=== PATIENT | female | born 1935 | race Caucasian/White ===

== ENCOUNTER 2018-02-15 03:38 | Emergency (ER) | payer MEDICARE, MEDICAID ==
[2018-02-15] MEDS ORDERED: Nitroglycerin 2% OINT* 1 GM PAK ONE (03:47)
[2018-02-15] MEDS ORDERED: Aspirin 81 mg CHEW TAB* 81 MG TAB.CHEW ONE (03:48)
[2018-02-15] MEDS ORDERED: Nitroglycerin 2% OINT* 1 GM PAK TOPICAL ONE (03:54)
[2018-02-15] MEDS ORDERED: Furosemide IV* 10 MG/ML VIAL (40 MG) IV ONE (03:54)
[2018-02-15] MEDS ORDERED: Aspirin TAB* 325 MG PO ONE (03:57)
[2018-02-15] MEDS ORDERED: Ticagrelor* 90 MG TAB PO ONE (04:07)
[2018-02-15 04:08] LABS: ABS Basophils 0 10^3/ul (0-0.2); ABS Eosinophils 0.1 10^3/ul (0-0.6); ABS Lymphocytes 0.8 10^3/ul (1.0-4.8); ABS Monocytes 0.3 10^3/ul (0-0.8); ABS Neutrophils 5.7 10^3/ul (1.5-7.7); ABS Nucleated RBC 0 10^3/ul; Eosinophil % 0.8 % (0-6); Hematocrit 39 % (35-47); Hemoglobin 13.5 g/dl (12.0-16.0); Lymphocyte % 11.6 % (25-47); Mean Corpuscular HGB Conc 35 g/dl (31-36); Mean Corpuscular Hemoglobin 33 pg (27-31); Mean Corpuscular Volume 96 fL (80-97); Mean Platelet Volume 9.6 um3 (7.4-10.4); Nucleated Red Blood Cells % 0; Platelet Count 186 10^3/ul (150-450); Red Cell Distribution Width 14 % (10.5-15); White Blood Count 6.9 10^3/ul (3.5-10.8)
[2018-02-15] MEDS ORDERED: Heparin VIAL(*) 5000 UNITS/ML VIAL (FIVE THOUSAND) IV STA (04:11)
[2018-02-15] MEDS ORDERED: Heparin for STEMI(*) 5,000 UNITS/ML 1 ML VIAL IV ONE (04:11)
[2018-02-15] MEDS ORDERED: Morphine VIAL* 4 MG/ML VIAL (1 ml vial) IV ONE (04:14)
[2018-02-15 04:19] LABS: INR 0.91 (0.77-1.02)
[2018-02-15 04:24] LABS: EGFR Non-African American 109.9 (>60)
[2018-02-15] MEDS ORDERED: Lidocaine 1% INJ* 10 MG/ML 30 ML SDV ONE (04:25)
[2018-02-15] MEDS ORDERED: nitroGLYCERIN DRIP* 25,000 MCG/250 ML BTL ONE (04:25)
[2018-02-15] MEDS ORDERED: Heparin 2 UNITS/ML IVPREMIX* 3,000 ML IV ONE (04:25)
[2018-02-15] MEDS ORDERED: fentaNYL* 50 MCG/ML 2 ML VIAL (100 MCG VIAL) ONE (04:25)
[2018-02-15] MEDS ORDERED: Iohexol 350 (CONTRAST) 200 ML MDV IV ONE (04:26)
[2018-02-15] MEDS ORDERED: Midazolam* 1 MG/ML 10 ML VIAL (10 MG) ONE (04:36)
[2018-02-15] MEDS ORDERED: Heparin(*) 1000 UNIT/ML 10 ML VIAL CATH LAB IV ONE (04:37)
[2018-02-15] MEDS ORDERED: VERAPAMIL 2.5 MG/ML 2 ML VIAL ** 5 mg/2 ml ONE (04:37)
[2018-02-15 04:46] VITALS: BP 114/95
--- NOTE | 2018-02-15 04:48 | ED ---
Dwayne Mcpherson Gabriel, scribed for EsmondErmias MD on 02/15/18 at 0342 . Dizziness - HPI Summary HPI Summary: This patient is a 82 year old F BIBA to [facility] the [facility] for dizziness that began last night at 2100. This morning she was diaphoretic and complaining of dyspnea which is unusual for her per [facility] staff. Patient reports diaphoresis, RHODES, and SOB. Patient denies chest pain. Hx Afib. Per EMS, she was in respiratory distress and hypoxic on their arrival. - History Of Current Complaint Chief Complaint: EDShortnessOfBreath Stated Complaint: SOB Time Seen by Provider: 02/15/18 03:40 Hx Obtained From: Patient Onset/Duration: Suddenly Timing: Constant Severity Initially: Moderate Severity Currently: Moderate Character: Lightheaded, Dizzy Aggravating Factor(s): Nothing Associated Signs And Symptoms: Positive: Other: - diaphoresis, RHODES, and SOB. - Allergies/Home Medications Allergies/Adverse Reactions: Allergies Allergy/AdvReac Type Severity Reaction Status Date / Time ciprofloxacin Allergy Rash Verified 02/15/18 03:41 Sulfa (Sulfonamide Allergy Rash Verified 02/15/18 03:41 Antibiotics) Home Medications: Home Medications Metoprolol Succinate XL TAB* [Toprol XL TAB*] 25 mg PO DAILY 02/15/18 [History Confirmed 02/15/18] PMH/Surg Hx/FS Hx/Imm Hx Endocrine/Hematology History: Denies: Hx Anticoagulant Therapy, Hx Diabetes Cardiovascular History: Reports: Hx Hypercholesterolemia, Hx Hypertension, Other Cardiovascular Problems/Disorders - carotid blockage, HLD Denies: Hx Auto Implanted Cardiovert Defib, Hx Congestive Heart Failure, Hx Pacemaker/ICD Respiratory History: Denies: Hx Chronic Obstructive Pulmonary Disease (COPD) GI History: Reports: Hx Ulcer, Other GI Disorders - CHRONIC CONSTIPATION History: Denies: Hx Renal Disease Musculoskeletal History: Reports: Hx Arthritis, Hx Back Problems, Hx Osteoporosis, Other Musculoskeletal History - SPINAL STENOSIS Sensory History: Reports: Hx Cataracts - BILAT EXT WITH IOL, Hx Contacts or Glasses Denies: Hx Glaucoma, Hx Hearing Aid Opthamlomology History: Reports: Hx Cataracts - BILAT EXT WITH IOL, Hx Contacts or Glasses Denies: Hx Glaucoma Neurological History: Reports: Hx Migraine, Other Neuro Impairments/Disorders - VERTIGO Psychiatric History: Denies: Hx Panic Disorder - Cancer History Hx Chemotherapy: No Hx Radiation Therapy: No - Surgical History Surgery Procedure, Year, and Place: LEFT INGUINAL HERNIA REPAIR 11/2013. UMBILICAL HERNIA REPAIR. [place] [facility] [place] [facility] [place] RIGHT [place]OTAL KNEE- [facility]. 1950 & 1965 RT BREAST BIOPSY (BENIGN)- [facility]. 1963 & 1964 C- SECTION- [facility] 1965 APPENDECTOMY & HYSTERECTOMY- [facility]. [place] [facility] [place] Anesthesia Reactions: No - Social History Alcohol Use: None Substance Use Type: Reports: None Smoking Status (MU): Never Smoked Tobacco Have You Smoked in the Last Year: No Review of Systems Positive: Skin Diaphoresis Negative: Chest Pain Positive: Shortness Of Breath, Other - RHODES Neurological: Other - dizziness All Other Systems Reviewed And Are Negative: Yes Physical Exam - Summary Physical Exam Summary: Appearance: Well-appearing, Well-nourished, in moderate distress Skin: diaphoretic Eyes: sclera anicteric, no conjunctiva pallor, ENT: mucous membranes moist, pharynx appears normal, Neck: Supple, nontender Respiratory: diffuse expiratory wheezes with inspiratory crackles. Increased work with breathing Cardiovascular: Normal S1, S2. No murmurs. Normal distal pulses in tibial and radial bilaterally. Abdomen: Soft, nontender, normal active bowel sounds present Musculoskeletal: Normal, Strength/ROM Intact, no edema Neurological: A&Ox3, awake and alert, mentation is normal, speech is fluent and appropriate Psychiatric: affect is normal, does not appearing anxious or depressed Triage Information Reviewed: Yes Vital Signs On Initial Exam: Initial Vitals Temp Pulse Resp BP Pulse Ox 35.4 C 99 18 148/128 97 02/15/18 03:39 02/15/18 03:39 02/15/18 03:39 02/15/18 03:39 02/15/18 03:39 Vital Signs Reviewed: Yes Diagnostics - Vital Signs Vital Signs Temp Pulse Resp BP Pulse Ox 02/15/18 04:11 85 97/65 98 02/15/18 04:10 92 86/66 98 02/15/18 04:04 82 20 86/66 97 02/15/18 04:00 85 20 98 02/15/18 03:55 107 18 109/80 98 02/15/18 03:44 96 26 147/109 97 02/15/18 03:43 93 29 94 02/15/18 03:39 35.4 C 99 18 148/128 97 - Laboratory Lab Results: Lab Results 02/15/18 02/15/18 02/15/18 Range/Units 03:54 03:54 03:54 WBC 6.9 (3.5-10.8) 10^3/ul RBC 4.10 (4.0-5.4) 10^6/ul Hgb 13.5 (12.0-16.0) g/dl Hct 39 (35-47) % MCV 96 (80-97) fL MCH 33 H (27-31) pg MCHC 35 (31-36) g/dl RDW 14 (10.5-15) % Plt Count 186 (150-450) 10^3/ul MPV 9.6 (7.4-10.4) um3 Neut % (Auto) 82.2 (38-83) % Lymph % (Auto) 11.6 L (25-47) % Hendricks % (Auto) 4.9 (0-7) % Eos % (Auto) 0.8 (0-6) % Baso % (Auto) 0.5 (0-2) % Absolute Neuts (auto) 5.7 (1.5-7.7) 10^3/ul Absolute Lymphs (auto) 0.8 L (1.0-4.8) 10^3/ul Absolute Monos (auto) 0.3 (0-0.8) 10^3/ul Absolute Eos (auto) 0.1 (0-0.6) 10^3/ul Absolute Basos (auto) 0 (0-0.2) 10^3/ul Absolute Nucleated RBC 0 10^3/ul Nucleated RBC % 0 INR (Anticoag Therapy) (0.77-1.02) APTT (26.0-36.3) seconds Sodium 132 L (139-145) mmol/L Potassium Pending Chloride 99 L (101-111) mmol/L Carbon Dioxide 22 (22-32) mmol/L Anion Gap Pending BUN 22 (6-24) mg/dL Creatinine 0.53 (0.51-0.95) mg/dL Est GFR ( Amer) 141.3 (>60) Est GFR (Non-Af Amer) 109.9 (>60) BUN/Creatinine Ratio 41.5 H (8-20) Glucose 244 H (70-100) mg/dL Lactic Acid 2.5 H* (0.5-2.0) mmol/L Calcium 9.3 (8.6-10.3) mg/dL Total Bilirubin 0.60 (0.2-1.0) mg/dL AST Pending ALT 81 H (7-52) U/L Alkaline Phosphatase 93 (34-104) U/L Total Creatine Kinase 114 (10-223) U/L CK-MB (CK-2) 14.7 H (0.6-6.3) ng/mL Myoglobin 59.6 (14.3-65.8) ng/mL Troponin I 0.50 H* (<0.04) ng/mL B-Natriuretic Peptide ( - 100) pg/mL Total Protein 6.4 (6.4-8.9) g/dL Albumin 3.9 (3.2-5.2) g/dL Globulin 2.5 (2-4) g/dL Albumin/Globulin Ratio 1.6 (1-3) LDL Cholesterol Direct 73 mg/dL Blood Type Antibody Screen 02/15/18 02/15/18 02/15/18 Range/Units 03:54 03:54 03:54 WBC (3.5-10.8) 10^3/ul RBC (4.0-5.4) 10^6/ul Hgb (12.0-16.0) g/dl Hct (35-47) % MCV (80-97) fL MCH (27-31) pg MCHC (31-36) g/dl RDW (10.5-15) % Plt Count (150-450) 10^3/ul MPV (7.4-10.4) um3 Neut % (Auto) (38-83) % Lymph % (Auto) (25-47) % Hendricks % (Auto) (0-7) % Eos % (Auto) (0-6) % Baso % (Auto) (0-2) % Absolute Neuts (auto) (1.5-7.7) 10^3/ul Absolute Lymphs (auto) (1.0-4.8) 10^3/ul Absolute Monos (auto) (0-0.8) 10^3/ul Absolute Eos (auto) (0-0.6) 10^3/ul Absolute Basos (auto) (0-0.2) 10^3/ul Absolute Nucleated RBC 10^3/ul Nucleated RBC % INR (Anticoag Therapy) 0.91 (0.77-1.02) APTT 26.2 (26.0-36.3) seconds Sodium (139-145) mmol/L Potassium Chloride (101-111) mmol/L Carbon Dioxide (22-32) mmol/L Anion Gap BUN (6-24) mg/dL Creatinine (0.51-0.95) mg/dL Est GFR ( Amer) (>60) Est GFR (Non-Af Amer) (>60) BUN/Creatinine Ratio (8-20) Glucose (70-100) mg/dL Lactic Acid (0.5-2.0) mmol/L Calcium (8.6-10.3) mg/dL Total Bilirubin (0.2-1.0) mg/dL AST ALT (7-52) U/L Alkaline Phosphatase (34-104) U/L Total Creatine Kinase (10-223) U/L CK-MB (CK-2) (0.6-6.3) ng/mL Myoglobin (14.3-65.8) ng/mL Troponin I (<0.04) ng/mL B-Natriuretic Peptide 1130 H ( - 100) pg/mL Total Protein (6.4-8.9) g/dL Albumin (3.2-5.2) g/dL Globulin (2-4) g/dL Albumin/Globulin Ratio (1-3) LDL Cholesterol Direct mg/dL Blood Type A Positive Antibody Screen Pending Result Diagrams: 02/15/18 03:54 02/15/18 03:54 Lab Statement: Any lab studies that have been ordered have been reviewed, and results considered in the medical decision making process. - Radiology No standard instances Xray Interpretation: Positive (See Comments) - pulmonary edema is present Radiology Interpretation Completed By: ED Physician - Pulmonary edema is present - EKG No standard instances Cardiac Rate: NL EKG Rhythm: 1st Degree HB Ectopy: PVCs - occasional EKG Comparison: - Baseline tracing shows nl ST segments Re-Evaluation - Re-Evaluation First Eval Re-Evaluation Time: 04:02 Change: Unchanged Comment: I informed the patient that she may be having a heart attack and discussed her DNR status in relation to treatment. She states she would like to be treated even if that includes being intubated and other forms of resuscitation . Dizzy Course/Dx - Diagnoses Provider Diagnoses: Acute ST elevation myocardial infarction (STEMI) due to occlusion of right coronary artery, Acute pulmonary edema During the Visit The Following Alert/Code Occurred: STEMI - called at 0341 and 0403 - Provider Notifications Discussed Care Of Patient With: Fercho Garcia Time Discussed With Above Provider: 03:48 Instructed by Provider To: Other - We discussed patient care with Dr. Garcia and he states that since the pt is a DNR she should not be brought to the dental laboratory technician. - Critical Care Time Critical Care Time: 30-74 min - Pt with acute pulmonary edema and respiratory distress requiring bipap in the setting of STEMI. Discharge - Sign-Out/Discharge Documenting (check all that apply): Discharge/Admit/Transfer - Discharge Plan Condition: Critical Disposition: ADMITTED TO [facility] Referrals: Jeff Rodriguez MD [Primary Care Provider] - - Billing Disposition and Condition Condition: CR[place] [place] Consult: We discussed patient care with Dr. Garcia and they recommended giving the patient brilinta and heparin. The documentation as recorded by the Dwayne myrick Gabriel accurately reflects the service I personally performed and the decisions made by me, Ermias Hardy MD.
[2018-02-15] MEDS ORDERED: Heparin DRIP 25,000 UNITS(*) 25,000 UNITS/500 ML BAG ONE (05:05)
--- NOTE | 2018-02-15 08:00 | RAD ---
HISTORY: Shortness of breath COMPARISONS: June 25, 2015 VIEWS: 1: frontal portable view of the chest at 3:48 AM. The patient is obliqued to the left. FINDINGS: LINES AND TUBES: None. CARDIOMEDIASTINAL SILHOUETTE: The cardiac silhouette is enlarged. The cardiomediastinal silhouette is otherwise normal for portable technique. PLEURA: The costophrenic angles are sharp. No pleural abnormalities are noted. LUNG PARENCHYMA: There is diffuse pattern of reticular opacification. There is more focal alveolar desiccation of the right midlung field. ABDOMEN: The upper abdomen is clear. There is no subphrenic gas. BONES AND SOFT TISSUES: No bone or soft tissue abnormalities are noted. IMPRESSION: 1. CARDIOMEGALY. 2. DIFFUSE INTERSTITIAL OPACIFICATION SUGGESTIVE OF PULMONARY INTERSTITIAL EDEMA IN THE CORRECT CLINICAL SETTING. 3. THERE IS MORE FOCAL AIRSPACE DISEASE OF THE RIGHT MIDLUNG
--- NOTE | 2018-02-15 08:55 | HP ---
CC: Jeff Rodriguez MD * ADMISSION HISTORY AND PHYSICAL/TRANSFER NOTE: DATE OF ADMISSION: 02/15/18 CHIEF COMPLAINT: Shortness of breath and dizziness with mild diaphoresis with EKG raising a question of acute ST-segment elevation inferior wall myocardial infarction. HISTORY OF PRESENT ILLNESS: The patient is an 82-year-old female with no prior history of coronary artery disease. She has a history of hypertension, hyperlipidemia, who resides at a nursing facility and developed shortness of breath and diaphoresis and some dizziness starting earlier in the day becoming more significant toward the middle of the night. The ambulance was summoned and she was found to have minimal ST-segment elevation was in lead aVF and more prominent lead 3 and the patient was brought to [facility] where the emergency room physician called a STEMI alert. Of note, discussing with them over the phone, it was noted that she had a DNR status in place at the long term. The emergency room doctor, Dr. aHrdy then went back into the room and the patient wished to reverse the DNR status and wanted everything done including being intubated, including being on life support system and having CPR performed. On my arrival, she had the shortness of breath, but at no time had she complained chest discomfort. The risks and benefits were reviewed with the patient and her daughter both understood and the patient wished to proceed. PAST MEDICAL HISTORY: Hypertension, hyperlipidemia, osteoarthritis, chronic low back pain due to spinal stenosis, chronic right footdrop, chronic bowel and bladder incontinence. She also has carotid artery disease with a greater than 70% stenosis of a right internal carotid artery. REVIEW OF SYSTEMS: Pertinent proceeding to the cardiovascular laboratory, the patient denied any known history of stroke, any history of hematemesis, hematochezia, hematuria, or any dye allergy. She denied any known history of renal insufficiency. PHYSICAL EXAMINATION VITAL SIGNS: In the emergency room, blood pressure 114/95, pulse 85, respirations 20, O2 saturation on BiPAP was 97%. NECK: Supple. I could not assess for increased JVP accurately. I could not hear carotid sounds due to coarse breath sounds. CHEST: Chest had coarse breath sounds bilaterally. HEART: Heart had frequent PACs with a soft systolic murmur. ABDOMEN: Obese, soft, nontender. EXTREMITIES: Without pitting edema. Peripheral pulses were diminished. Femoral pulses present bilaterally. MUSCULOSKELETAL: She moved all extremities. NEUROLOGIC: The patient alert, oriented. PSYCHOLOGICAL: Patient with appropriate affect. DIAGNOSTIC STUDIES/LAB DATA: Sodium 132, potassium was hemolyzed, chloride 99 , bicarb 22, BUN and creatinine were 22 and 0.5, hemoglobin and hematocrit was 13.5 and 39, white count was 6900, platelet count was 186,000, glucose was 244, lactic acid was 2.5, SGOT was not available due to hemolysis, SGPT was 81, BNP was 1130, total CPK 114, MB 14.7, troponin 0.5. Of note, patient had been given furosemide 20 mg IV in the emergency room. Initially, was given a Nitropaste, but this was wiped off due to hypotension that transiently developed. Cardiovascular laboratory results and there appeared to be what look like a chronic total occlusion right coronary artery, severe calcification was seen throughout the proximal and mid right coronary artery. There were left to right collaterals noted. The true caliber of the right coronary artery could not be identified. The left coronary artery had a 95% distal left main stenosis. There was moderate coronary artery disease. In the proximal LAD, there was calcification seen in the left main and proximal portion of the LAD and the circumflex. The branches of the circumflex and the LAD diagonal branches had no critical disease seen within them. The caliber of the diagonal branches was borderline bypassable. LVEF was estimated at 25% with inferior akinesis, significant hypokinesis elsewhere and left ventricular end diastolic pressure was 30 to 32 mmHg. OVERALL ASSESSMENT: Ciarra presents now with suggestive findings of possible ST- segment elevation inferior OR with a totally occluded right, which appears to be chronic as there appears to be filling virtually all the way back to the proximal right coronary artery. The biggest obvious problem is the critical 95 % left main. 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 I did have a discussion with the patient at length as to whether she really wanted to proceed with all of this and is into the point of risk of stroke during surgery as well as all other complications that could come up during surgery. She understood all of this, but clearly wanted to proceed with transfer, so that she could get a surgical opinion regarding the case. It was the family's wish that she got sent to the [place], they specifically did not want [facility], the closest facility, and understood the issue that it would cost more to be transferred to [place]. I personally spoke with Dr. Maddy Sky, who graciously accepted the patient to the Cardiothoracic Surgery Intensive Care Unit. At the time of discharge, the patient was on nasal cannula O2 saturating at 95% to 97% and blood pressure was in the 140/80 range. I personally also gave a report to the emergency medical service personnel as well. Further management will be made under the guidance of [facility]'s Cardiothoracic Surgery Department with Dr. Sky accepting the patient. [id number]/[facility] #: [id number] MTDSusan
--- NOTE | 2018-02-15 10:58 | CATH ---
CC: Dr. Jeff Rodriguez; Dr. Maddy Sky, Department of Cardiothoracic Surgery, [place], [place] * CARDIAC CATHETERIZATION REPORT: DATE OF PROCEDURE: 02/15/18 - EMERGENCY DEPT INDICATION FOR THE PROCEDURE: The patient presents with EKG raising question of a ST segment elevation inferior wall myocardial infarction with shortness of breath presentation. No chest discomfort. The procedure was coronary arteriorrhaphy, left heart catheterization, left ventriculography. The patient was interviewed and examined in the emergency room where the risks and benefits were explained. Of note, the patient reversed a DNR order to proceed with cardiac catheterization, accepted all of the implications of this. The family was present as well and understood this. In the emergency room, the patient had received 4000 units of heparin, 180 mg of Brilinta and the patient had already received full dose aspirin therapy. The patient was brought to the cardiovascular laboratory where formal timeout was performed. APPROACH UTILIZED: Left femoral artery. EQUIPMENT UTILIZED: 1. Femoral sheath - 23 cm long, 6-Serbian right hip sheath. 2. Diagnostic catheters - An FL 3.5 curve left coronary catheter and a JR4, AL1 , AR2 for right coronary artery. 3. Catheter for left heart catheterization - A 5-Serbian angled pigtail catheter. 4. Guidewire utilized for catheter exchanges was an exchange length Wholey wire which had to be utilized given some degree of difficulty advancing the wire throughout the distal aortic area (a long sheath was utilized for this purpose). The total contrast used was 50 cc of Omnipaque dye. The radiation exposure included 9.6 minutes of fluoro time. The air kerma radiation was 420 mGy. The DAP radiation was 3270 microGray/m2. RESULTS: HEMODYNAMIC DATA: Central aortic pressure recorded at 150/83, with a mean of 115 left ventricular pressure 150 and left ventricular end-diastolic pressure of 34 mmHg. LEFT VENTRICULOGRAPHY: Performed in the COX projection revealed severe left ventricular systolic dysfunction with virtual akinesis to dyskinesis of the proximal inferior wall, with [id number] hypokinesis of the anterior wall. There was mild mitral regurgitation noted, the severity of which cannot be accurately assessed. CORONARY ARTERIOGRAPHY: A. Left coronary artery: 1. Left Main: Of note, there was tapering of the mid portion of the left main to a critical distal stenosis of 90% to 95%. 2. Left anterior descending artery: The proximal left anterior descending artery had an area of 70% noted. There was calcium involving this area as well past this point. After the first diagonal branch there was diffuse disease seen immediately after it. The degree of narrowing noted to be about 50%. The rest of the LAD towards the apical region supplying a well- developed distal collateral to an acute marginal branch of the right coronary artery, which retrograde fill at the proximal portion of the right coronary artery and down it collateral flow was seen through the septal perforators to the distal right coronary artery. The first diagonal branch bifurcated and the medial branch appeared to have a 65% to 70% stenosis just after the bifurcation. The caliber of the vessel appeared to be somewhat small in size in its distal 2 branches. 3. 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 That artery did not have significant disease throughout the course of the vessels, the continuation of the circumflex had as much as a 65% to 70% stenosis seen in its proximal portion, it supplied a very thin second obtuse marginal branch and ended in a bifurcating low-lying obtuse marginal branch. B. Right coronary artery: The right coronary artery appeared to be totally occluded at its ostium with an anterior takeoff with no flow seen down the right coronary artery despite multiple attempts. The true ostium could not even be accurately identified. OVERALL ASSESSMENT: Severe coronary disease with probable chronically occluded right coronary artery with collateralization from the distal LAD and septal perforators with critical distal left main of 90% to 95%. The discussion was had with the patient who wished to proceed with transfer to a center to get a surgical opinion as to proceeding with open heart surgery. She did unfortunately get Brilinta 180 mg and that information was shared with Dr. Sky. Arrangements will be made for emergent transfer to [facility] as Dr. Sky ( cardiothoracic surgeon at [facility] in [place]) graciously accepted the patient. We will maintain her on heparin, suture the left femoral sheath in place, in case bypass surgeries is actually attempted so as perhaps the ability to place an intraaortic balloon could be considered, it should be noted that heavy calcification was seen throughout the aorta in both the thoracic and abdominal aorta. A Wholey exchange length wire was utilized to advance the guide catheters. [id number]/[facility] #: [id number] JAGJIT
== END 2018-02-15 04:54 | disposition short-term general hospital (02) ==
LOC: ED 03:38
DX: I21.11 ST elevation (STEMI) myocardial infarction involving right coronary artery (principal); I25.10 Atherosclerotic heart disease of native coronary artery without angina pectoris; J81.0 Acute pulmonary edema; I10 Essential (primary) hypertension; E78.5 Hyperlipidemia, unspecified; I51.7 Cardiomegaly; Z66 Do not resuscitate; Z88.3 Allergy status to other anti-infective agents; Z88.2 Allergy status to sulfonamides
CPT/HCPCS: 36415; 71045; 80053; 82550; 82553; 83605; 83721; 83874; 83880; 84484; 85025; 85610; 85730; 86850; 86900; 86901; 93005; 93458; 96374; 96375; 99285; A9270-GY; C1769; C1887; J1644; J1940; J2250; J3010

== ENCOUNTER 2018-02-23 17:39 | Inpatient (IN) | payer MEDICARE, MEDICAID ==
[2018-02-23] MEDS ORDERED: NS 0.9% 1000 ML* 1,000 ML IV ONE (17:46)
[2018-02-23 18:05] LABS: ABS Basophils 0.1 10^3/ul (0-0.2); ABS Eosinophils 0 10^3/ul (0-0.6); ABS Lymphocytes 0.9 10^3/ul (1.0-4.8); ABS Monocytes 0.6 10^3/ul (0-0.8); ABS Neutrophils 6.3 10^3/ul (1.5-7.7); ABS Nucleated RBC 0 10^3/ul; Eosinophil % 0.1 % (0-6); Hematocrit 36 % (35-47); Hemoglobin 12.3 g/dl (12.0-16.0); Lymphocyte % 11.5 % (25-47); Mean Corpuscular HGB Conc 34 g/dl (31-36); Mean Corpuscular Hemoglobin 32 pg (27-31); Mean Corpuscular Volume 94 fL (80-97); Nucleated Red Blood Cells % 0; Platelet Count 261 10^3/ul (150-450); Red Blood Count 3.85 10^6/ul (4.0-5.4); Red Cell Distribution Width 14 % (10.5-15); White Blood Count 7.9 10^3/ul (3.5-10.8)
[2018-02-23 18:23] LABS: EGFR Non-African American 114.9 (>60)
[2018-02-23] MEDS ORDERED: Heparin for STEMI(*) 5,000 UNITS/ML 1 ML VIAL IV ONE (18:45)
--- NOTE | 2018-02-23 18:46 | RAD ---
INDICATION: Chest pain COMPARISON: Most recent comparison chest x-rays dated February 15, 2018 TECHNIQUE: Single AP portable view of the chest was obtained. FINDINGS: Image quality is compromised due to the relative inferiority of a portable chest x-ray. There is mild cardiomegaly similar in appearance to the previous chest x-ray. There is coarse atherosclerotic calcification overlying the arch of the aorta similar in appearance to the previous chest x-ray. There is density obscuring the left worse than right lung bases causing left-sided costophrenic angle blunting. The pulmonary vasculature appears mildly engorged and indistinct. Visualized bones are normal for the patient's age. IMPRESSION: In the correct clinical setting chest x-ray findings could be compatible with cardiogenic pulmonary edema.
[2018-02-23 19:14] LABS: Urine Appearance Clear; Urine Blood Negative (Negative); Urine Color Yellow; Urine Ketones Negative (Negative); Urine Protein Negative (Negative); Urine Specific Gravity 1.012 (1.010-1.030); Urine Urobilinogen Negative (Negative)
[2018-02-23] MEDS ORDERED: Ondansetron INJ* 2 MG/ML VIAL IV PRN (20:13)
[2018-02-23] MEDS ORDERED: Heparin DRIP 25,000 UNITS(*) 25,000 UNITS/500 ML BAG IV SCH (20:15)
[2018-02-23] MEDS ORDERED: Dextrose 50% Syringe 50 ML* 25 GM/50 ML SYRINGE IV PUSH PRN (20:18)
[2018-02-23] MEDS ORDERED: Heparin VIAL(*) 5000 UNITS/ML VIAL (FIVE THOUSAND) IV PRN (20:25)
--- NOTE | 2018-02-23 20:28 | ED ---
Dwayne Mcpherson Gabriel, scribed for Kevin Stevens MD on 02/23/18 at 1756 . HPI Chest Pain - HPI Summary HPI Summary: This patient is a 82 year old F BIBA to [facility] after being sent from her correction for hypotension. Pt reports mild chest pain yesterday that resolved today. The patient rates the pain 0/10 in severity. Patient reports SOB, cough, diaphoresis, and nausea. Patient denies v/d, ABD pain, and back pain. Pt recently refused a CABG. - History of Current Complaint Time Seen by Provider: 02/23/18 17:46 Hx Obtained From: Patient, Family/Office Clinician Onset/Duration: Started Days Ago - 1, Still Present Timing: Constant Initial Severity: Mild Current Severity: None Pain Intensity: 0 Pain Scale Used: 0-10 Numeric Chest Pain Location: Diffuse Chest Pain Radiates: No Associated Signs and Symptoms: Positive: Other: - SOB, cough, diaphoresis, and nausea. - Additional Pertinent History Primary Care Physician: [id number] - Allergy/Home Medications Allergies/Adverse Reactions: Allergies Allergy/AdvReac Type Severity Reaction Status Date / Time ciprofloxacin Allergy Rash Verified 02/15/18 03:41 Sulfa (Sulfonamide Allergy Rash Verified 02/15/18 03:41 Antibiotics) Home Medications: Home Medications Acetaminophen TAB* [Tylenol TAB*] 650 mg PO Q6H PRN 02/23/18 [History Confirmed 02/23/18] Aspirin 81 mg CHEW TAB* [Aspirin Low Dose TAB*] 81 mg PO DAILY 02/23/18 [ History Confirmed 02/23/18] Clopidogrel TAB* [Plavix TAB*] 75 mg PO DAILY 02/23/18 [History Confirmed ] Furosemide TAB* [Lasix TAB*] 40 mg PO DAILY 02/23/18 [History Confirmed 02/23/18 ] Isosorbide Mononitrate ER TAB* [Imdur ER TAB*] 30 mg PO DAILY 02/23/18 [History Confirmed 02/23/18] Nitroglycerin TAB 0.4 MG* 0.4 mg SL Q5M PRN 02/23/18 [History Confirmed 02/23/18 ] Potassium Chlor TAB* [Klor Con ER TAB*] 20 meq PO DAILY 02/23/18 [History Confirmed 02/23/18] Ramipril CAP* [Altace CAP*] 1.25 mg PO DAILY 02/23/18 [History Confirmed ] Simvastatin TAB(NF) [Zocor(NF)] 20 mg PO DAILY 02/23/18 [History Confirmed 02/23] Sodium Chloride 0.9%* 0.9 % IV DAILY 02/23/18 [History Confirmed 02/23/18] PMH/Surg Hx/FS Hx/Imm Hx Endocrine/Hematology History: Denies: Hx Anticoagulant Therapy, Hx Diabetes Cardiovascular History: Reports: Hx Hypercholesterolemia, Hx Hypertension, Other Cardiovascular Problems/Disorders - carotid blockage, HLD Denies: Hx Auto Implanted Cardiovert Defib, Hx Congestive Heart Failure, Hx Pacemaker/ICD Respiratory History: Denies: Hx Chronic Obstructive Pulmonary Disease (COPD) GI History: Reports: Hx Ulcer, Other GI Disorders - CHRONIC CONSTIPATION History: Denies: Hx Renal Disease Musculoskeletal History: Reports: Hx Arthritis, Hx Back Problems, Hx Osteoporosis, Other Musculoskeletal History - SPINAL STENOSIS Sensory History: Reports: Hx Cataracts - BILAT EXT WITH IOL, Hx Contacts or Glasses Denies: Hx Glaucoma, Hx Hearing Aid Opthamlomology History: Reports: Hx Cataracts - BILAT EXT WITH IOL, Hx Contacts or Glasses Denies: Hx Glaucoma Neurological History: Reports: Hx Migraine, Other Neuro Impairments/Disorders - VERTIGO Psychiatric History: Denies: Hx Panic Disorder - Cancer History Hx Chemotherapy: No Hx Radiation Therapy: No - Surgical History Surgery Procedure, Year, and Place: LEFT INGUINAL HERNIA REPAIR 11/2013. UMBILICAL HERNIA REPAIR. 2008 CERVICAL SPINE- [facility] [place]. 2011 LUMBAR SPINE- [facility] [place]. 2004 RIGHT TOTAL KNEE- [facility]. 1950 & 1965 RT BREAST BIOPSY (BENIGN)- [facility]. 1963 & 1964 C- SECTION- [facility] 1965 APPENDECTOMY & HYSTERECTOMY- [facility]. 2006 BILAT CATARACTS- [facility] [place] Hx Anesthesia Reactions: No - Immunization History Date of Tetanus Vaccine: unk Date of Influenza Vaccine: unk - Social History Alcohol Use: None Substance Use Type: Reports: None Smoking Status (MU): Never Smoked Tobacco Have You Smoked in the Last Year: No Review of Systems Positive: Skin Diaphoresis Positive: Chest Pain Positive: Shortness Of Breath, Cough Positive: Nausea. Negative: Abdominal Pain, Vomiting, Diarrhea Musculoskeletal: Negative - back pain All Other Systems Reviewed And Are Negative: Yes Physical Exam - Summary Physical Exam Summary: VITAL SIGNS: Reviewed. GENERAL: Patient is an elderly female who is lying comfortable in the stretcher. Patient is not in any acute respiratory distress. HEAD AND FACE: No signs of trauma. No ecchymosis, hematomas or skull depressions. No sinus tenderness. EYES: PERRLA, EOMI x 2, No injected conjunctiva, no nystagmus. EARS: Hearing grossly intact. Ear canals and tympanic membranes are within normal limits. MOUTH: Oropharynx within normal limits. NECK: Supple, trachea is midline, no adenopathy, no JVD, no carotid bruit, no c- spine tenderness, neck with full ROM. CHEST: Symmetric, no tenderness at palpation LUNGS: bilateral crackles CVS: Regular rate and rhythm, S1 and S2 present, no murmurs or gallops appreciated. ABDOMEN: Soft, non-tender. No signs of distention. No rebound no guarding, and no masses palpated. Bowel sounds are normal. EXTREMITIES: FROM in all major joints, no edema, no cyanosis or clubbing. NEURO: Alert and oriented x 3. No acute neurological deficits. Speech is normal and follows commands. SKIN: Dry and warm Triage Information Reviewed: Yes Vital Signs On Initial Exam: Initial Vitals Temp Pulse Resp BP Pulse Ox 98.4 F 97 20 102/70 96 02/23/18 17:55 02/23/18 17:55 02/23/18 17:55 02/23/18 17:55 02/23/18 17:55 Vital Signs Reviewed: Yes Diagnostics - Vital Signs Vital Signs Temp Pulse Resp BP Pulse Ox 02/23/18 18:26 109/76 02/23/18 18:04 98 02/23/18 17:55 98.4 F 97 20 102/70 96 - Laboratory Lab Results: Lab Results 02/23/18 02/23/18 02/23/18 Range/Units 17:56 17:56 17:56 WBC 7.9 (3.5-10.8) 10^3/ul RBC 3.85 L (4.0-5.4) 10^6/ul Hgb 12.3 (12.0-16.0) g/dl Hct 36 (35-47) % MCV 94 (80-97) fL MCH 32 H (27-31) pg MCHC 34 (31-36) g/dl RDW 14 (10.5-15) % Plt Count 261 (150-450) 10^3/ul MPV 9.0 (7.4-10.4) um3 Neut % (Auto) 80.4 (38-83) % Lymph % (Auto) 11.5 L (25-47) % [place] % (Auto) 7.2 H (0-7) % Eos % (Auto) 0.1 (0-6) % Baso % (Auto) 0.8 (0-2) % Absolute Neuts (auto) 6.3 (1.5-7.7) 10^3/ul Absolute Lymphs (auto) 0.9 L (1.0-4.8) 10^3/ul Absolute Monos (auto) 0.6 (0-0.8) 10^3/ul Absolute Eos (auto) 0 (0-0.6) 10^3/ul Absolute Basos (auto) 0.1 (0-0.2) 10^3/ul Absolute Nucleated RBC 0 10^3/ul Nucleated RBC % 0 APTT 30.5 (26.0-36.3) seconds Sodium 125 L (139-145) mmol/L Potassium 4.4 (3.5-5.0) mmol/L Chloride 89 L (101-111) mmol/L Carbon Dioxide 26 (22-32) mmol/L Anion Gap 10 (2-11) mmol/L BUN 36 H (6-24) mg/dL Creatinine 0.51 (0.51-0.95) mg/dL Est GFR ( Amer) 147.8 (>60) Est GFR (Non-Af Amer) 114.9 (>60) BUN/Creatinine Ratio 70.6 H (8-20) Glucose 135 H (70-100) mg/dL Lactic Acid (0.5-2.0) mmol/L Calcium 9.3 (8.6-10.3) mg/dL Magnesium 2.1 (1.9-2.7) mg/dL Total Bilirubin 0.50 (0.2-1.0) mg/dL AST 68 H (13-39) U/L ALT 27 (7-52) U/L Alkaline Phosphatase 63 (34-104) U/L Total Creatine Kinase 232 H (10-223) U/L CK-MB (CK-2) 47.9 H (0.6-6.3) ng/mL Troponin I 5.40 H* (<0.04) ng/mL B-Natriuretic Peptide ( - 100) pg/mL Total Protein 6.3 L (6.4-8.9) g/dL Albumin 3.7 (3.2-5.2) g/dL Globulin 2.6 (2-4) g/dL Albumin/Globulin Ratio 1.4 (1-3) TSH 8.98 H (0.34-5.60) mcIU/mL 02/23/18 02/23/18 Range/Units 17:56 17:56 WBC (3.5-10.8) 10^3/ul RBC (4.0-5.4) 10^6/ul Hgb (12.0-16.0) g/dl Hct (35-47) % MCV (80-97) fL MCH (27-31) pg MCHC (31-36) g/dl RDW (10.5-15) % Plt Count (150-450) 10^3/ul MPV (7.4-10.4) um3 Neut % (Auto) (38-83) % Lymph % (Auto) (25-47) % [place] % (Auto) (0-7) % Eos % (Auto) (0-6) % Baso % (Auto) (0-2) % Absolute Neuts (auto) (1.5-7.7) 10^3/ul Absolute Lymphs (auto) (1.0-4.8) 10^3/ul Absolute Monos (auto) (0-0.8) 10^3/ul Absolute Eos (auto) (0-0.6) 10^3/ul Absolute Basos (auto) (0-0.2) 10^3/ul Absolute Nucleated RBC 10^3/ul Nucleated RBC % APTT (26.0-36.3) seconds Sodium (139-145) mmol/L Potassium (3.5-5.0) mmol/L Chloride (101-111) mmol/L Carbon Dioxide (22-32) mmol/L Anion Gap (2-11) mmol/L BUN (6-24) mg/dL Creatinine (0.51-0.95) mg/dL Est GFR ( Amer) (>60) Est GFR (Non-Af Amer) (>60) BUN/Creatinine Ratio (8-20) Glucose (70-100) mg/dL Lactic Acid 1.5 (0.5-2.0) mmol/L Calcium (8.6-10.3) mg/dL Magnesium (1.9-2.7) mg/dL Total Bilirubin (0.2-1.0) mg/dL AST (13-39) U/L ALT (7-52) U/L Alkaline Phosphatase (34-104) U/L Total Creatine Kinase (10-223) U/L CK-MB (CK-2) (0.6-6.3) ng/mL Troponin I (<0.04) ng/mL B-Natriuretic Peptide 3193 H ( - 100) pg/mL Total Protein (6.4-8.9) g/dL Albumin (3.2-5.2) g/dL Globulin (2-4) g/dL Albumin/Globulin Ratio (1-3) TSH (0.34-5.60) mcIU/mL Result Diagrams: 02/23/18 17:56 02/23/18 17:56 Lab Statement: Any lab studies that have been ordered have been reviewed, and results considered in the medical decision making process. - Radiology CXR Radiology Interpretation Completed By: Radiologist - In the correct clinical setting chest x-ray findings could be compatible with cardiogenic pulmonary edema. ED physician has reviewed this radiology report. - EKG 17:50 Cardiac Rate: NL EKG Rhythm: Sinus Rhythm - at 97 BPM EKG Interpretation: ST elevations in 3, AVR and AVF, reciprocal changes AVL and lead 1 EKG Comparison: No Significant Change - similar to 02-15-18 Re-Evaluation - Re-Evaluation Second Eval Re-Evaluation Time: 18:05 Change: Unchanged Comment: I spoke with the patients daughter, Anna Ernst and she reports that the patient is DNR and DNI Chest Pain Course/Dx - Course Assessment/Plan: This patient is an 82-year-old female who presents to the emergency room after she was transferred from the correction to the emergency room with a chief complaint of having chest comfort, shortness of breath, she was diaphoretic and clammy. The patient had a catheterization in 02/15/[address] Garcia. After the catheterization the recommended to have a CABG Garcia at that point the patient and the patients daughter declined the CABG. On arrival to the emergency room the patient reports no chest pain or shortness of breath, however the patient seems to be hypotensive. As per EMS he reports that the blood pressure is only 80/40. Initially the patient was placed in a cardiac specialist, we obtained 2 IV access, and the patient was given 1 L of fluids. The patient is not febrile or tachycardic at this point to think that the patient is septic. Patients EKG shows that she has an ST elevation in leads 3 and AVR and aVF with depressions in 1 aVL. The EKG is similar to previous EKG done on 02/15/19. At this time I discussed the case with Dr. Garcia name to firestopper technician and he reports that since the patient is a DNR/DNI the patient is not a candidate for a cardiac catheter. I also discussed the findings of the EKG with the patients and the patients daughter and they reported the patient is DNR/DNI and they declined the cardiac catheter. Therefore Dr. Garcia recommends for the patient to be medically treated. Blood test results without any significant abnormality except for sodium 125, albumin of 36, glucose 135, CK-MB of 47.9, troponin of 5.4, BNP of 3193. I believe that the patient is having an ST elevation AR which he also shows in the EKG however since the patient is DNR/DNI the patient is not a candidate for a cardiac catheterization as per Dr. Garcia. The patients daughter also reports that she was hospitalized at [facility] in [place] for a possible CABG however the patient refused. Therefore the patient was discharged to the correction yesterday at 8 PM. Since the patient is hypotensive the patient was given IV fluids, she was given aspirin and I held the beta bethel since the patient is hypotensive and the nitroglycerin since the patient is hypertensive and she is not having any chest pain. The patient was given 1 dose of heparin. At this time I discussed my physical exam, findings, and test results with Dr. Monk from the hospitalist services and he agreed to admit the patient to the services for further workup and management. I also discussed the findings, test results with Dr. Kan from the supervisor [facility] services and he reports that he was discussed with Dr. Monk for the further workup and management of the patient. The patient is critical - Chest Pain Differential Diagnosis/HQI/PQRI: Acute AR, ACS, Angina, CHF, Chest Wall, GI Disease, Lower Respiratory Infection - Diagnoses Provider Diagnoses: ST elevation AR (STEMI), CHF exacerbation - Provider Notifications Discussed Care Of Patient With: eFrcho Garcia Time Discussed With Above Provider: 15:58 Instructed by Provider To: Other - We discussed patient care with Dr. Garcia and he states that since the patient is a DNR/DNI that she must be medically treated and that she will not be cathed. - Critical Care Time Critical Care Time: 75-104 min Discharge - Sign-Out/Discharge Documenting (check all that apply): Discharge/Admit/Transfer - admitted - Discharge Plan Condition: Stable Disposition: HOME Referrals: Jeff Rodriguez MD [Primary Care Provider] - Consult Consult: discussed patient care with Dr. Byrd I informed him what Dr. Garcia recommended. He has agreed to consult on and admit the patient. discussed patient care with Dr. Dasilva and they state that Dr. Byrd should decide if he should consult on the patient. The documentation as recorded by the Dwayne myrick Gabriel accurately reflects the service I personally performed and the decisions made by , Kevin Stevens MD.
[2018-02-23] MEDS: Morphine VIAL* 4 MG/ML VIAL (1 ml vial) IV PRN (23:13)
[2018-02-23] MEDS: Baclofen TAB* 10 MG PO PRN (23:16)
--- NOTE | 2018-02-24 00:08 | HP ---
CC: Dr. Rodriguez; [facility] * HISTORY AND PHYSICAL: DATE OF ADMISSION: 02/23/18 PRIMARY CARE PROVIDER: Dr. Rodriguez. ATTENDING PROVIDER: Dr. Bowie * (DICTATED BY TAMMY AGUILERA NP) CHIEF COMPLAINT: 1. Dyspnea on exertion. 2. Chest pressure, discomfort. HISTORY OF PRESENT ILLNESS: Ms. Ernst is an 82-year-old female patient, who recently presented with a STEMI about a week ago, was ultimately transferred up to [place] at [facility], we are going to try to get those records, where ultimately the patient was found to have left main disease about 95% occlusion. She went to [facility], she was evaluated and ultimately refused open heart surgery as the lesion was amenable to open heart surgery only. She, in addition to this, also initially had rescinded her DNR here at [facility], but then when she got up to [facility], she reinstated it and did not want to go through cath or open heart surgery. The patient was then discharged to [facility] for rehabilitation purposes, though the last couple of 24 hours, she has been having intermittent chest discomfort, pressure. She describes it as worse with exertion. In addition to this, also has been having some orthopnea and trouble breathing particularly with any type of movement, even rolling in bed. The nursing staff was concerned at [facility] and they sent her over to her hospital for further evaluation. She denies having any fevers. She does admit to having a cough. She denies any weight gain or swelling of the lower extremities. She denies having any abdominal discomfort. She did admit to having some dry heaves at times. She denies having any chest pressure at this point, but there was concern because of the symptoms she has been having. She came in to the ED, was evaluated. Her troponin was up to 5, do not know if this is trending down from her previous troponin from the last heart attack she had a week ago. In addition to this, also she appears to have STEMI on EKG, which appears to be similar to her previous EKG when she presented initially about a week ago. Because of these findings, we were asked to evaluate for admission. PAST MEDICAL HISTORY: Significant for: 1. CAD. 2. PR. 3. Carotid artery disease. 4. Hypertension. 5. Hyperlipidemia. 6. Arthritis. 7. Back pain. 8. Diabetes. 9. Chronic footdrop. 10. Bowel/bladder incontinence. 11. History of CHF. PAST SURGICAL HISTORY: 1. The patient has had a right total knee replacement. 2. She has had lumbar back surgery. 3. Cervical spine surgery. 4. Left shoulder arthroscopy. 5. Prolapsed bladder repair. 6. Hysterectomy. 7. Appendectomy. 8. . 9. Lumpectomy. MEDICATIONS: Home meds include: 1. Zocor 20 mg daily. 2. Altace 1.25 mg daily. 3. Potassium chloride 20 mEq daily. 4. Nitro 0.4 mg sublingual q.5 minutes p.r.n. chest pain x3. 5. Metoprolol 25 mg p.o. daily. 6. Imdur 30 mg daily. 7. Lasix 40 mg daily. 8. Plavix 75 mg daily. 9. Baclofen 10 mg p.o. every 6 hours as needed. 10. Aspirin 81 mg a day. 11. Tylenol 650 mg every 6 hours as needed. ALLERGIES TO MEDICATIONS: Include CIPRO and SULFA. FAMILY HISTORY: Mother had a history of CHF. Father had prostate cancer. SOCIAL HISTORY: She does not smoke, she does not drink. She is currently a resident at [facility]. Surrogate decision maker is her daughter. REVIEW OF SYSTEMS: There is no documented fever. She denies having any significant weight change. There is no double vision. She denies having any ear discharge. There is no rhinorrhea. There is no sore throat. No thyroid enlargement. She denies any chest pressure now. She denies having any abdominal discomfort. There were episodes of nausea with vomiting. There is no dysuria, there is no frequency. No seizure. She denies having any loss of consciousness. No pruritus and no skin ulcerations. Review of 14 systems completed, all others negative. PHYSICAL EXAMINATION GENERAL: At this time, Ms. Ernst is an 82-year-old female patient. She is sitting in the ED stretcher. She appears to be well nourished, well developed. She does not appear to be in any acute distress. VITAL SIGNS: Blood pressure 109/76, pulse 97, respirations 20, O2 saturation 96 %, temperature 98.4. HEENT: Head is atraumatic, normocephalic. Eyes: EOMs are intact. Sclerae are anicteric and not pale. Throat: Oral mucosa appears to be moist. No oropharyngeal erythema. NECK: Supple. LUNGS: She had crackles in the bases bilaterally. She had equal diaphragmatic expansion. HEART: Sounds S1, S2. Regular rate and rhythm. No murmurs, rubs, or gallops. ABDOMEN: Soft, flat, nontender. Bowel sounds are present. EXTREMITIES: She is moving all 4 extremities. She had no peripheral edema. NEUROLOGICAL: She is awake, she is oriented x3. Endodontist are equal. Tongue midline. She had no gross focal deficits. SKIN: Intact. DIAGNOSTIC STUDIES/LAB DATA: Today, WBC of 7.9, RBC of 3.85, hemoglobin of 12.3, hematocrit 36, and platelet count of 261. PTT of 30.5. The sodium was 125, which when looking back appears to be at her baseline; potassium 4.4; chloride of 89; bicarb 26; BUN 36; creatinine 0.51; glucose 135; lactate 1.5; calcium 9.3; mag 2.1. Total bili 0.5, AST 68, ALT 27, alk phos 63. CK 232. CK- MB 47.9. Troponin 5. BNP 3193. Albumin 3.7. TSH 8.98. Urine was obtained; it was negative. She had a chest x-ray obtained today, which showed in the correct clinical setting, chest x-ray findings could be compatible with cardiogenic pulmonary edema. She had an EKG obtained today, which does show ST elevations in leads III and aVF. There were T-wave inversions in lead I, aVL. In reviewing previous EKG, it appeared to be similar, the elevation appeared to be worse today in leads III and aVF. She had a cardiac cath done, she had on 02/15/18, which showed, impression: Left main - there is left main distal stenosis 90% to 95%. She had proximal LAD at 75% was noted, the first diagonal had about 50% disease and the medial branch off the first diagonal had 60% to 65%, circumflex had up to 65% to 70% disease and the right coronary was totally occluded. I will refer you to the report for details. Old medical records reviewed. ASSESSMENT AND PLAN: Ms. Ernst is a complex 82-year-old female patient, coming in to our hospital today with complaints of chest discomfort and also having dyspnea on exertion with minimal exertion. On evaluation today, found to have what appeared to be elevated troponin and ST-segment elevation myocardial infarction. She will be admitted under inpatient status for: 1. ST-segment elevation myocardial infarction. At this point, the patient has known severe coronary artery disease. Has recently refused a coronary artery bypass graft and she does now want aggressive interventions done. She is actually interested in hospice and comfort measures only. She is aware that if this blockage in her left main goes to 100%, this would lead to her demise. She says that she does not want to be intubated. She does not want to rescind her DNR and is not interested in high-risk catheterization or procedures. So, at this point, I did touch base with Cardiology. The plan would be to treat her with medical management only. I did add on heparin just for comfort to see if this would help prevent lesion from becoming 100% occluded. I also have placed Palliative Care consult for the patient. I have ordered morphine for pain. She is on aspirin, statin, Plavix, beta bethel, and nitrates. We will continue with these. I will repeat the EKG in the morning. She is chest pain free now and we will continue with comfort measures for this patient. 2. Coronary artery disease. Again, continue meds as prescribed, aggressive statin, beta bethel, nitrate therapy. 3. Carotid artery disease. She is on statin, Plavix, continue. 4. Hypertension. Continue meds as prescribed as blood pressure will tolerate. 5. Hyperlipidemia. Continue statin therapy. 6. Arthritis and chronic back pain. Continue her baclofen and I have ordered p.r.n. morphine. 7. Diabetes. I have ordered lispro sliding scale. 8. History of congestive heart failure. We will continue with aggressive diuresis if needed for comfort. 9. DVT prophylaxis. Heparin drip has been ordered. 10. Code status. She wishes to be a DNR/DNI. 11. Prognosis is very poor for this patient. She knows and she and her both daughter both said that they would like to just focus on comfort, quality of life, not quantity of life. They requested a legal service specialist, which I have ordered. They are not interested in heart catheterization and she does not want to rescind her DNR. In addition to this, she does not want open heart surgery, so I did explain to her that without these aggressive interventions, she most likely would ; it is unclear as to when this may happen, but her prognosis remains poor. At this point, the patient and her family are interested in hospice care, and again, I will continue aggressive medical intervention in the hopes for comfort. TIME SPENT: On the admission was 70 minutes; greater than half the time was spent [id number] with the patient obtaining my history and physical, other half the time was spent going over the plan of care with the patient and implementing plan of care. I did discuss the plan of care with my attending, Dr. Bowie; she is in agreement. TAMMY AGUILERA NP [id number]/CPS #: [id number]
[2018-02-24] MEDS: Morphine VIAL* 4 MG/ML VIAL (1 ml vial) IV PRN ×3 (05:25→16:07)
[2018-02-24] MEDS: Baclofen TAB* 10 MG PO PRN (05:25)
[2018-02-24] MEDS: Ondansetron 40 MG VIAL* 2 MG/ML 20 ML VIAL IV PRN (05:25)
[2018-02-24 05:47] LABS: ABS Basophils 0.1 10^3/ul (0-0.2); ABS Eosinophils 0 10^3/ul (0-0.6); ABS Lymphocytes 1.4 10^3/ul (1.0-4.8); ABS Monocytes 0.5 10^3/ul (0-0.8); ABS Nucleated RBC 0 10^3/ul; Eosinophil % 0.6 % (0-6); Hematocrit 34 % (35-47); Hemoglobin 11.6 g/dl (12.0-16.0); Lymphocyte % 20.4 % (25-47); Mean Corpuscular HGB Conc 35 g/dl (31-36); Mean Corpuscular Hemoglobin 33 pg (27-31); Mean Corpuscular Volume 95 fL (80-97); Mean Platelet Volume 9.2 um3 (7.4-10.4); Nucleated Red Blood Cells % 0; Platelet Count 245 10^3/ul (150-450); Red Blood Count 3.54 10^6/ul (4.0-5.4); Red Cell Distribution Width 14 % (10.5-15)
[2018-02-24 06:07] LABS: EGFR Non-African American 114.9 (>60)
[2018-02-24] MEDS ORDERED: Furosemide TAB* 40 MG PO SCH (09:00)
[2018-02-24] MEDS ORDERED: Isosorbide Mononitrate ER TAB* 30 MG PO SCH (09:00)
[2018-02-24] MEDS ORDERED: Metoprolol Succinate XL TAB* 25 MG PO SCH (09:00)
[2018-02-24] MEDS ORDERED: Clopidogrel TAB* 75 MG PO SCH (09:00)
[2018-02-24] MEDS ORDERED: Ramipril CAP* 1.25 MG PO SCH (09:00)
[2018-02-24] MEDS: Insulin LISPRO* 1 UNITS UNIT SUBCUT SCH ×2 (09:00→11:59)
[2018-02-24] MEDS ORDERED: Aspirin 81 mg CHEW TAB* 81 MG TAB.CHEW PO SCH (09:00)
[2018-02-24] MEDS ORDERED: Atorvastatin* 10 MG TAB PO SCH (09:00)
[2018-02-24] MEDS ORDERED: LORazepam INJ* 2 MG/ML 1 ML VIAL IV PUSH PRN (12:15)
[2018-02-24 12:30] VITALS: BP 89/63
--- NOTE | 2018-02-24 15:39 | PN ---
Subjective Date of Service: 02/24/18 Interval History: Nauseous this AM but then better with meds No chest pain or SOB Long discussion with patient and family regarding goals of care Patient repeatedly notes she "wants to be comfortable" but also has a difficult time following conversation HCP assisting in medical decision making and notes her mother has indicated she wants comfort measures only Together we discussed stopping all interventions including vitals with focus on comfort Objective Active Medications: Acetaminophen (Tylenol Tab*) 650 mg PO Q4H PRN PRN Reason: FEVER/PAIN Baclofen (Lioresal Tab*) 10 mg PO Q6HR PRN PRN Reason: SPASMS Last Admin: 02/24/18 05:25 Dose: 10 mg Lorazepam (Ativan Inj*) 0.5 mg IV PUSH Q4H PRN PRN Reason: ANXIETY Morphine Sulfate (Morphine Vial*) 1 mg IV Q1H PRN PRN Reason: pain or respiratory distress Last Admin: 02/24/18 12:49 Dose: 1 mg Ondansetron HCl (Zofran 40 Mg Vial*) 4 mg IV Q6H PRN PRN Reason: NAUSEA Last Admin: 02/24/18 05:25 Dose: 4 mg Vital Signs - 8 hr 02/24/18 02/24/18 02/24/18 07:40 07:44 11:17 Temperature 97.8 F 97.6 F Pulse Rate 98 95 Respiratory 20 22 Rate Blood Pressure 113/53 89/63 (mmHg) O2 Sat by Pulse 98 98 100 Oximetry 02/24/18 02/24/18 12:49 13:45 Temperature Pulse Rate Respiratory 20 18 Rate Blood Pressure (mmHg) O2 Sat by Pulse Oximetry Oxygen Devices in Use Now: Nasal Cannula Appearance: ill appearing, in no pain or distress Eyes: No Scleral Icterus, PERRLA Ears/Nose/Mouth/Throat: - - dry mm Neck: NL Appearance and Movements; NL JVP, Trachea Midline Respiratory: Symmetrical Chest Expansion and Respiratory Effort, Clear to Auscultation Cardiovascular: RRR Neurological: - - AOx2 to self and hospital Result Diagrams: 02/24/18 05:37 02/24/18 05:37 Additional Lab and Data: Lab Results 02/23/18 02/23/18 02/23/18 Range/Units 17:56 17:56 17:56 WBC 7.9 (3.5-10.8) 10^3/ul RBC 3.85 L (4.0-5.4) 10^6/ul Hgb 12.3 (12.0-16.0) g/dl Hct 36 (35-47) % MCV 94 (80-97) fL MCH 32 H (27-31) pg MCHC 34 (31-36) g/dl RDW 14 (10.5-15) % Plt Count 261 (150-450) 10^3/ul MPV 9.0 (7.4-10.4) um3 Neut % (Auto) 80.4 (38-83) % Lymph % (Auto) 11.5 L (25-47) % [place] % (Auto) 7.2 H (0-7) % Eos % (Auto) 0.1 (0-6) % Baso % (Auto) 0.8 (0-2) % Absolute Neuts (auto) 6.3 (1.5-7.7) 10^3/ul Absolute Lymphs (auto) 0.9 L (1.0-4.8) 10^3/ul Absolute Monos (auto) 0.6 (0-0.8) 10^3/ul Absolute Eos (auto) 0 (0-0.6) 10^3/ul Absolute Basos (auto) 0.1 (0-0.2) 10^3/ul Absolute Nucleated RBC 0 10^3/ul Nucleated RBC % 0 APTT 30.5 (26.0-36.3) seconds Sodium 125 L (139-145) mmol/L Potassium 4.4 (3.5-5.0) mmol/L Chloride 89 L (101-111) mmol/L Carbon Dioxide 26 (22-32) mmol/L Anion Gap 10 (2-11) mmol/L BUN 36 H (6-24) mg/dL Creatinine 0.51 (0.51-0.95) mg/dL Est GFR ( Amer) 147.8 (>60) Est GFR (Non-Af Amer) 114.9 (>60) BUN/Creatinine Ratio 70.6 H (8-20) Glucose 135 H (70-100) mg/dL Lactic Acid (0.5-2.0) mmol/L Calcium 9.3 (8.6-10.3) mg/dL Magnesium 2.1 (1.9-2.7) mg/dL Total Bilirubin 0.50 (0.2-1.0) mg/dL AST 68 H (13-39) U/L ALT 27 (7-52) U/L Alkaline Phosphatase 63 (34-104) U/L Total Creatine Kinase 232 H (10-223) U/L CK-MB (CK-2) 47.9 H (0.6-6.3) ng/mL Troponin I 5.40 H* (<0.04) ng/mL B-Natriuretic Peptide ( - 100) pg/mL Total Protein 6.3 L (6.4-8.9) g/dL Albumin 3.7 (3.2-5.2) g/dL Globulin 2.6 (2-4) g/dL Albumin/Globulin Ratio 1.4 (1-3) TSH 8.98 H (0.34-5.60) mcIU/mL 02/23/18 02/23/18 Range/Units 17:56 17:56 WBC (3.5-10.8) 10^3/ul RBC (4.0-5.4) 10^6/ul Hgb (12.0-16.0) g/dl Hct (35-47) % MCV (80-97) fL MCH (27-31) pg MCHC (31-36) g/dl RDW (10.5-15) % Plt Count (150-450) 10^3/ul MPV (7.4-10.4) um3 Neut % (Auto) (38-83) % Lymph % (Auto) (25-47) % [place] % (Auto) (0-7) % Eos % (Auto) (0-6) % Baso % (Auto) (0-2) % Absolute Neuts (auto) (1.5-7.7) 10^3/ul Absolute Lymphs (auto) (1.0-4.8) 10^3/ul Absolute Monos (auto) (0-0.8) 10^3/ul Absolute Eos (auto) (0-0.6) 10^3/ul Absolute Basos (auto) (0-0.2) 10^3/ul Absolute Nucleated RBC 10^3/ul Nucleated RBC % APTT (26.0-36.3) seconds Sodium (139-145) mmol/L Potassium (3.5-5.0) mmol/L Chloride (101-111) mmol/L Carbon Dioxide (22-32) mmol/L Anion Gap (2-11) mmol/L BUN (6-24) mg/dL Creatinine (0.51-0.95) mg/dL Est GFR ( Amer) (>60) Est GFR (Non-Af Amer) (>60) BUN/Creatinine Ratio (8-20) Glucose (70-100) mg/dL Lactic Acid 1.5 (0.5-2.0) mmol/L Calcium (8.6-10.3) mg/dL Magnesium (1.9-2.7) mg/dL Total Bilirubin (0.2-1.0) mg/dL AST (13-39) U/L ALT (7-52) U/L Alkaline Phosphatase (34-104) U/L Total Creatine Kinase (10-223) U/L CK-MB (CK-2) (0.6-6.3) ng/mL Troponin I (<0.04) ng/mL B-Natriuretic Peptide 3193 H ( - 100) pg/mL Total Protein (6.4-8.9) g/dL Albumin (3.2-5.2) g/dL Globulin (2-4) g/dL Albumin/Globulin Ratio (1-3) TSH (0.34-5.60) mcIU/mL Microbiology and Other Data: Microbiology 02/23/18 22:35 Nasal Screen MRSA (PCR)(GERMAN) - Final Nasal Mrsa Not Detected Assess/Plan/Problems-Billing Assessment: 82 yo F presented with STEMI 1 week prior deemed to need CABG and transferred to higher level of care where she declined surgery and no high risk LHC now returning with STEMI and chest pain with decision to transition to comfort care measures only - Patient Problems (1) STEMI (ST elevation myocardial infarction) Comment: stop heparin stop tele DNR (2) Comfort measures only status Comment: Long discussion with family and patient Stop all meds not delivering comfort initiate morphine, ativan, zofran PRN for comfort goal is discharge to [facility] with hospice. Will not plan on discharge for at least 24 hrs until clear she will not in transit
[2018-02-25] MEDS: Acetaminophen TAB* 325 MG PO PRN ×2 (02:59→07:55)
[2018-02-25] MEDS: Ondansetron 40 MG VIAL* 2 MG/ML 20 ML VIAL IV PRN (06:55)
[2018-02-25] MEDS: Baclofen TAB* 10 MG PO PRN (07:55)
[2018-02-25] MEDS: Morphine VIAL* 4 MG/ML VIAL (1 ml vial) IV PRN ×2 (12:55→15:48)
--- NOTE | 2018-02-25 15:06 | DS ---
CC: [facility]; Dr. Jeff Rodriguez * DATE OF ADMISSION: 02/23/2018. DATE OF DISCHARGE: 02/25/2018. DISPOSITION AT DISCHARGE: [facility] with Hospice to sign on 02/26/2018. PRIMARY DIAGNOSES: ST-elevated myocardial infarction; comfort measures. HISTORY OF PRESENT ILLNESS AND HOSPITAL COURSE: This 82-year-old female presented to [facility] approximately one week prior to presentation with an ST-elevated SD, went to [facility] and found was high risk lesions for which she was transferred to a higher level of care for coronary artery bypass. While at that institution, she transitioned to a full DNR/DNI, declined open intervention and no high risk catheterization was performed for the presenting reason of ST elevation SD. She was discharged to [facility] where she again developed chest pain, as well as hypotension for which she was transferred to [facility]. Again, she was found with an ST-elevated SD on a similar presenting EKG as that one week prior when she first presented. Extensive conversation was had with the family as well as the patient regarding goals of care, and the patient was clear that she wished to pursue comfort measures only. She was originally started on Heparin which was discontinued after multiple conversations to ensure this is what the patient and family wanted. The rest of her medications were discontinued, except for those in line with comfort. She was consulted in conjunction with our palliative service and will be transferred back to [facility] with Hospice to sign on tomorrow. During the course of her hospital stay, she has required only a minimal amount of Morphine 1 mg IV three times over the last 48 hours, minimal Ativan 0.5 mg IV overnight prior to discharge, and several doses of Zofran for nausea. She was complaint free at the time of discharge except for some mucus, but no drooling or difficulty managing secretions. Discussed using Atropine and decided against it at this time. There was bed availability potential at hospice residence which patient and family currently declined secondary to limited public transportation to that location in order to visit patient. There were no complications during the patient's hospital stay. Her prognosis remains guarded, although she looks improved since the time of admission. Please do not hesitate to contact this author with any additional questions or concerns. Greater than 45 minutes were spent in the discharge of this patient, greater than half was spent [id number] with the patient and her family. [id number]/[facility] #: [id number]
== END 2018-02-25 16:10 | DRG 282 ==
LOC: ED 17:39 → MEDTELE 20:10
PROVIDERS: ADMIT Pediatrics; ATTEND Internal Medicine
DX: I21.3 ST elevation (STEMI) myocardial infarction of unspecified site (principal); Z66 Do not resuscitate; I25.10 Atherosclerotic heart disease of native coronary artery without angina pectoris; I50.9 Heart failure, unspecified; I11.0 Hypertensive heart disease with heart failure; E78.5 Hyperlipidemia, unspecified; M19.90 Unspecified osteoarthritis, unspecified site; E11.9 Type 2 diabetes mellitus without complications; M21.379 Foot drop, unspecified foot; N39.498 Other specified urinary incontinence; Z96.1 Presence of intraocular lens; K59.09 Other constipation; G43.909 Migraine, unspecified, not intractable, without status migrainosus; R15.9 Full incontinence of feces; Z96.651 Presence of right artificial knee joint; G89.29 Other chronic pain; M54.9 Dorsalgia, unspecified; I65.29 Occlusion and stenosis of unspecified carotid artery; Z98.42 Cataract extraction status, left eye; Z90.710 Acquired absence of both cervix and uterus; Z90.49 Acquired absence of other specified parts of digestive tract; I25.2 Old myocardial infarction; Z88.1 Allergy status to other antibiotic agents; Z88.2 Allergy status to sulfonamides; Z82.49 Family history of ischemic heart disease and other diseases of the circulatory system; Z80.42 Family history of malignant neoplasm of prostate; Z98.41 Cataract extraction status, right eye; R11.0 Nausea; Z51.5 Encounter for palliative care
CPT/HCPCS: 36415; 71045; 80048; 80053; 81003; 82550; 82553; 83605; 83735; 83880; 84436; 84439; 84443; 84479; 84481; 84484; 85025; 85730; 87641; 93005; 99283; A9270-GY; J1644; J2060; J2270; J2405